=== PATIENT | male | born 1975 | race Caucasian/White ===

== ENCOUNTER 2022-08-07 15:47 | Emergency (ER) | payer OTHER ==
[~2022-08-07] VITALS: Ht 180.3 cm; Wt 111.4 kg
[2022-08-07] MEDS ORDERED: KETOROLAC 30 MG/ML 1ML VIAL IV ONE ×2 (16:00→16:45)
[2022-08-07] MEDS ORDERED: PERCOCET 5MG/325MG TAB PO ONE (16:35)
[2022-08-07] MEDS ORDERED: LISI40TA4 (16:54)
[2022-08-07 17:34] VITALS: BP 149/87; TEMP 96.7; O2SAT 100
== END 2022-08-07 17:35 | disposition home or self-care (01) ==
LOC: M ED 15:47 → EDBD 15:47 → M ED 17:35
DX: S40.011A Contusion of right shoulder, initial encounter (principal); S93.401A Sprain of unspecified ligament of right ankle, initial encounter; V20.49XA Other motorcycle driver injured in collision with pedestrian or animal in traffic accident, initial encounter; Z79.811 Long term (current) use of aromatase inhibitors
CPT/HCPCS: 73030; 73610; 96374; 99284; J1885